=== PATIENT | female | born 1950 | race Caucasian/White ===

== ENCOUNTER 2022-11-19 04:08 | Day surgery (SDC) | payer OTHER ==
[2022-11-19 06:30] VITALS: BP 140/89; PULSE 77; RESP 20; TEMP 97.3
[2022-11-19 06:32] VITALS: BMI 34.3
[2022-11-19] MEDS ORDERED: LIDOCAINE HCL/PF 2% SDV 5ML VIAL ONE (07:19)
[2022-11-19] MEDS ORDERED: PROPOFOL 40 ML ONE (07:19)
== END 2022-11-19 08:30 | disposition home or self-care (01) ==
LOC: JASU-SURG 04:08
PROVIDERS: ATTEND Urology
DX: Z53.8 Procedure and treatment not carried out for other reasons (principal)
CPT/HCPCS: 74018-TC-FY